=== PATIENT | female | born 1950 | race Caucasian/White ===

== ENCOUNTER 2022-05-28 22:17 | Emergency (ER) | payer MEDICARE, SELFPAY ==
[2022-05-28 22:24] VITALS: BP 142/75; PULSE 89; RESP 15; TEMP 36.8; O2SAT 97
--- NOTE | 2022-05-28 22:45 | DI.RAD_ITS ---
Exam(s) XR FOOT LT COMPLETE EXAM: XR FOOT LT COMPLETE CLINICAL HISTORY: trauma, pain at proximal foot, base of tibia. TECHNIQUE: 2D digital imaging was performed of the left foot. Three images were obtained. AP, obli que and lateral views were obtained. COMPARISON: No exams were available for comparison FINDINGS: BONES: No acute fracture is present. No bony destructive lesion is seen. There is a small plantar kenan caneal spur. The bones are osteopenic. JOINTS: No dislocation present. Degenerative changes are seen in the foot. SOFT TISSUE: Atherosclerosis is present. IMPRESSION: No acute fracture or dislocation. DATA REPOSITORY: RADIATION DOSE DELIVERED:
--- NOTE | 2022-05-28 23:33 | ED.GENADUL_ITS ---
Discharge Plan Disposition Patient Disposition: HOME Condition: Stable Discharge Details Clinical Impression: Contusion of foot Primary Care Provider: Unknown,Unknown ED Provider: nAdreia Waters Home Meds and New Rx's Prescriptions: No Action No Known Home Meds Discharge Instructions Instructions: Foot Contusion (ED) Additional Instructions: take ibuprofen and tylenol as needed for pain elevate as much as possible weightbearing as tolerated orthopedic follow-up return with new or worsening complaints Referrals: Dane Myers MD [ [facility] STAFF PHYSICIAN] - Discharge Data Discharge Date/Time-TO BE ENTERED AT DEPARTURE: 05/29/22 01:08 Medical Decision Making Did not show evidence of acute abnormality x-ray, placed in a boot Comfortable discharge home Declines opiate analgesia Will take Tylenol and ibuprofen Will refer to orthopedics Repeat imaging in 1 week with persistent discomfort recommended Medical Records Medical records reviewed: Yes I reviewed the patient's medical records. Lab Data Lab results reviewed: Yes I reviewed the patient's lab results. HPI General Date/Time Provider Initiated Documentation: 05/28/22 22:44 . HPI Narrative: 72-year-old female who is otherwise healthy aside from breast cancer history presents with worsening left foot pain. She had injury to the foot approximately 1 week ago and has had worsening pain. She denies any strength or sensation change. She states that she dropped an object on the foot. She is not wearing a cast shoe that was applied at her last visit and reportedly had a negative x-ray at a different hospital prior to arrivavl Related Data Home Medications Medication Instructions Recorded Confirmed Unknown [No Known Home Meds] 05/28/22 05/28/22 Allergies Allergy/AdvReac Type Severity Reaction Status Date / Time No Known Allergies Allergy Unverified 05/28/22 22:28 General Stated Complaint: Orthopedic TOMAS: 4 Review of Systems Narrative: Review of systems obtained x3 and negative aside from indication in HPI PFSH All Active Problems (Updated 05/29/22 @ 00:16 by TORI Hussein) Contusion of foot (Acute) Social History Smoking/Tobacco Use Status: Never Smoking risk assessment performed?: Yes Alcohol Intake: former Drug use: Never Substance use type: does not use Additional Social history: Caregiver present. Exam Const General: cooperative, comfortable and no acute distress Extrem Other: Left foot nontender, swelling noted, no erythema, distal pulses intact, neurovascularly intact, no tenderness to left knee or calf Course Vital Signs Vital signs: Vital Signs Temperature 36.8 C 05/28/22 22:24 Pulse 89 05/28/22 22:24 Respiratory Rate 15 05/28/22 22:24 Blood Pressure 142/75 H 05/28/22 22:24 Pulse Oximetry 97 05/28/22 22:24 Temperature 36.8 C 05/28/22 22:24 Temperature Source Oral 05/28/22 22:24 Pulse 89 05/28/22 22:24 Respiratory Rate 15 05/28/22 22:24 Respiratory Effort Non-Labored 05/28/22 22:29 Blood Pressure 142/75 H 05/28/22 22:24 Blood Pressure Position Sitting 05/28/22 22:24 Pulse Oximetry 97 05/28/22 22:24 Oxygen Delivery Method Room Air 05/28/22 22:24 Oxygen Flow Rate 0 05/28/22 22:24 Pain Level 10 05/28/22 22:29
--- NOTE | 2022-05-28 23:42 | DI.VRAD_ITS ---
PROCEDURE INFORMATION: Exam: XR Left Foot Exam date and time: 05/28/2022 11:21 PM Age: 72 years old Clinical indication: Injury or trauma; Blunt trauma; Foot; Left; Injury date: 05/28/22; Injury details: Fall, proximal pain TECHNIQUE: Imaging protocol: Radiologic exam of the Left foot. Views: 3 or more views. COMPARISON: No relevant prior studies available. FINDINGS: Bones/joints: There is generalized osteopenia present. Bone mineralization is age-appropriate. There is no evidence of fracture. No evidence of dislocation. The joint spaces are adequately preserved; no significant degenerative narrowing and no bony erosion seen. Soft tissues: No radiopaque foreign body present. There is soft tissue swelling, most severe at the medial malleolus and medial foot. IMPRESSION: 1. No acute osseous abnormality. 2. There is a noninflamed plantar enthesophyte. 3. Mild degenerative changes at the level of the midfoot/tarsus. 4. There is soft tissue swelling, most severe at the medial malleolus and medial foot. Dictated and Authenticated by: John Crowley MD. Ordering:DANIELLE Boswell MD
[2022-05-29] MEDS: oxyCODONE 5 MG TAB PO (00:55)
--- NOTE | 2022-06-02 10:28 | CMACTNOTE_ITS ---
- If Service Date Differs Date of service: 05/29/22 Time of Service: 10:28 Care Management Activity Note Milagros is seen in the ED for worsening left foot pain. On 05/29/22, SHY receives a phone call from Milagros's daughter, Jojo, who requests a referral be sent to Dr. Meliton Ryan at [facility] in [place] (fax # [phone]). At family's request, CM coordinates a referral to Dr. Ryan.
== END 2022-05-29 01:08 | disposition home or self-care (01) ==
PROVIDERS: Emergency Provider Physician Assistant
DX: S90.32XA Contusion of left foot, initial encounter (principal); W20.8XXA Other cause of strike by thrown, projected or falling object, initial encounter
CPT/HCPCS: 99283; 73630